=== PATIENT | female | born 1965 | race Two or more races ===

== ENCOUNTER 2018-08-08 19:18 | Emergency (ER) | payer MEDICAID, OTHER ==
[~2018-08-08] VITALS: Ht 167.6 cm; Wt 70.8 kg
[~2018-08-08 19:18] MED LIST: ADALAT CC60 MG ORAL; BACLOFEN10 MG ORAL; GLUCOPHAGE500 MG ORAL; IBUPROFEN800 MG ORAL; NIFEDIPINE ER30 M2 ORAL; NORCO 5-325 TA1 EACH ORAL
[2018-08-08 19:38] VITALS: BP 120/82
--- NOTE | 2018-08-08 19:41 | NUR ---
ED Nurse Note: Pt [place] car [place] [address] Pt pain on neck, lower back, both shoulders, L arm and leg, pain level 9/10. pt is alert and oriented times 4. pt is able to ambulate with no complications. no active bleeding noted. pt pupiles are round and reactive to light and accomodating. pulse and sensation noted on all 4 extremities.
[2018-08-08] MEDS ORDERED: Acetaminophen 500mg (ES) tab ORAL ONE (19:45)
[2018-08-08] MEDS ORDERED: Methocarbamol 500mg tab ORAL ONE (19:45)
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
[2018-08-08] MEDS ORDERED: TYLENOL EXTRA500 MG ORAL (20:50)
[2018-08-08] MEDS ORDERED: ROBAXIN500 MG PO (20:50)
[2018-08-08] MEDS ORDERED: LIDOCAINE700 M1 TP (20:50)
[2018-08-08 20:58] VITALS: BP 118/80
--- NOTE | 2018-08-08 20:59 | NUR ---
ED Nurse Note: Pt cleared by Health Care Provider for discharge. DC instructions/prescriptions given and explained to pt and verbalized understanding of teachings. All medical devices such as ID band removed. Pt AAO x4, ambulatory and left with all personal belongings. pt is instructed to follow up with primary MD as soon as possible. pt is insturcted to return and seek medical attention if reoccurance of symptoms. pt has left with all DC notes and has been able to teach back all instructions.
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
== END 2018-08-08 20:58 | disposition home or self-care (01) ==
LOC: EMR 19:46
DX: M54.12 Radiculopathy, cervical region (principal); M54.5 Low back pain; I10 Essential (primary) hypertension; E11.9 Type 2 diabetes mellitus without complications; V43.52XA Car driver injured in collision with other type car in traffic accident, initial encounter; Y92.411 Interstate highway as the place of occurrence of the external cause
CPT/HCPCS: 72020; 72040; 99284